=== PATIENT | male | born 1995 | race Caucasian/White ===

== ENCOUNTER 2019-05-24 02:06 | Emergency (ER) | payer SELFPAY ==
[2019-05-24] MEDS ORDERED: Ibuprofen 200 MG TAB ONE (02:15)
[2019-05-24] MEDS ORDERED: Clindamycin 150 MG CAP ONE (02:15)
== END 2019-05-24 02:20 | disposition home or self-care (01) ==
LOC: BURERS 02:06
DX: K04.7 Periapical abscess without sinus (principal)
CPT/HCPCS: 99282

== ENCOUNTER 2020-11-21 16:52 | Emergency (ER) | payer SELFPAY ==
[2020-11-21] MEDS ORDERED: Albuterol 200 PUFF (6.7GM INHALER) ONE (17:23)
--- NOTE | 2020-11-21 20:25 | RAD ---
PORTABLE CHEST: Date: 11-21-2020 FINDINGS: An AP portable film at 1740 shows a normal sized heart and clear lungs. No definite infiltrate or eff usion was seen at this time. If symptoms continue, then a follow up film to take another look at the basilar portions of the lungs could be helpful. There is no congestive change. The mediastinum appear s normal. IMPRESSION: No acute thoracic finding. POS: HOME
[2020-11-22 06:34] LABS: SARS-CoV-2 MS2 Positive; SARS-CoV-2 N Gene Negative; SARS-CoV-2 S Gene Negative; SARS-CoV-2 by NAA Not Detected (NotDetected); SARS-CoV-2 orf1ab Negative
== END 2020-11-21 17:45 | disposition home or self-care (01) ==
LOC: BURERS 16:52
DX: J02.9 Acute pharyngitis, unspecified (principal); Z20.822 Contact with and (suspected) exposure to COVID-19
CPT/HCPCS: 71045; 87635; U0003

== ENCOUNTER 2021-01-21 17:50 | Emergency (ER) | payer SELFPAY | END 2021-01-21 18:30 | disposition home or self-care (01) | LOC: BURERS 17:50 → EEVIPCON 17:50 → BURERS 18:30 | DX: B34.9 Viral infection, unspecified (principal) | CPT/HCPCS: 99283 ==

== ENCOUNTER 2021-08-02 14:06 | Emergency (ER) | payer SELFPAY ==
[2021-08-02] MEDS ORDERED: Ibuprofen 200 MG TAB ONE (14:53)
[2021-08-03 11:59] LABS: SARS-CoV-2 PCR by NAA Not Detected (NotDetected)
== END 2021-08-02 15:40 | disposition home or self-care (01) ==
LOC: BURERS 14:06
DX: J06.9 Acute upper respiratory infection, unspecified (principal); Z20.822 Contact with and (suspected) exposure to COVID-19
CPT/HCPCS: 71046; U0003; U0005

== ENCOUNTER 2021-09-30 18:04 | Emergency (ER) | payer SELFPAY ==
[~2021-09-30 18:04] MED LIST: Boostrix 0.5 ML (Tdap) VIAL ONE
[2021-09-30] MEDS ORDERED: Lidocaine 1% PF 5 ML VIAL ONE (18:18)
[2021-09-30] MEDS ORDERED: TETANUS, DIPHTHERIA TOX,ADULT (TDVAX) 0.5 ML VIAL IM ONE (18:24)
== END 2021-09-30 19:03 | disposition home or self-care (01) ==
LOC: BURERS 18:04
DX: S60.121A Contusion of right index finger with damage to nail, initial encounter (principal); F17.220 Nicotine dependence, chewing tobacco, uncomplicated; Z23 Encounter for immunization; W23.0XXA Caught, crushed, jammed, or pinched between moving objects, initial encounter
CPT/HCPCS: 90471; 90714; 90715

== ENCOUNTER 2021-10-31 01:00 | Emergency (ER) | payer BC, SELFPAY ==
[2021-10-31 16:45] LABS: SARS-CoV-2 PCR by NAA Not Detected (NotDetected)
== END 2021-10-31 02:18 | disposition home or self-care (01) ==
LOC: BURERS 01:00
DX: B34.9 Viral infection, unspecified (principal); Z20.822 Contact with and (suspected) exposure to COVID-19; F17.220 Nicotine dependence, chewing tobacco, uncomplicated
CPT/HCPCS: 87804; 99284; U0003; U0005

== ENCOUNTER 2021-11-06 00:23 | Emergency (ER) | payer BC ==
[2021-11-06] MEDS ORDERED: Ibuprofen 200 MG TAB ONE (00:58)
[2021-11-06] MEDS ORDERED: Benzonatate 100 MG CAP ONE (00:58)
== END 2021-11-06 01:03 | disposition home or self-care (01) ==
LOC: BURERS 00:23
DX: S29.011A Strain of muscle and tendon of front wall of thorax, initial encounter (principal); R05.9 Cough, unspecified; F17.220 Nicotine dependence, chewing tobacco, uncomplicated
CPT/HCPCS: 99283

== ENCOUNTER 2022-11-09 01:55 | Emergency (ER) | payer BC, SELFPAY | END 2022-11-09 02:52 | disposition home or self-care (01) | LOC: BURERS 01:55 | DX: B34.9 Viral infection, unspecified (principal) | CPT/HCPCS: 87804; 99283 ==

== ENCOUNTER 2023-03-15 14:12 | Emergency (ER) | payer SELFPAY ==
[2023-03-15] MEDS ORDERED: Doxycycline 100 MG CAP ONE (15:11)
[2023-03-15] MEDS ORDERED: predniSONE 20 MG TAB ONE (15:11)
== END 2023-03-15 15:18 | disposition home or self-care (01) ==
LOC: BURERS 14:12
DX: J06.9 Acute upper respiratory infection, unspecified (principal); J32.9 Chronic sinusitis, unspecified; F17.290 Nicotine dependence, other tobacco product, uncomplicated
CPT/HCPCS: 99283; J7512

== ENCOUNTER 2023-07-11 10:41 | Emergency (ER) | payer OTHER | END 2023-07-11 11:25 | disposition home or self-care (01) | LOC: BURERS 10:41 | DX: T78.40XA Allergy, unspecified, initial encounter (principal); R05.9 Cough, unspecified; F17.290 Nicotine dependence, other tobacco product, uncomplicated | CPT/HCPCS: 71046 ==

== ENCOUNTER 2024-03-17 07:54 | Emergency (ER) | payer OTHER | END 2024-03-17 08:49 | disposition home or self-care (01) | LOC: BURERS 07:54 | DX: J06.9 Acute upper respiratory infection, unspecified (principal); F17.210 Nicotine dependence, cigarettes, uncomplicated | CPT/HCPCS: 99283 ==

== ENCOUNTER 2024-07-09 20:23 | Emergency (ER) | payer OTHER ==
[2024-07-09] MEDS ORDERED: Ibuprofen 200 MG TAB ONE (20:56)
== END 2024-07-09 21:38 | disposition home or self-care (01) ==
LOC: BURERS 20:23
DX: J20.9 Acute bronchitis, unspecified (principal); F17.210 Nicotine dependence, cigarettes, uncomplicated
CPT/HCPCS: 71045

== ENCOUNTER 2025-09-20 15:09 | Emergency (ER) | payer OTHER ==
[2025-09-20] MEDS ORDERED: Azithromycin 250 MG TAB ONE (16:12)
== END 2025-09-20 16:15 | disposition home or self-care (01) ==
LOC: BURERS 15:09
DX: K08.89 Other specified disorders of teeth and supporting structures (principal); K02.9 Dental caries, unspecified; F17.290 Nicotine dependence, other tobacco product, uncomplicated
CPT/HCPCS: 99282